=== PATIENT | female | born 1965 | race African-American/Black ===

== ENCOUNTER 2016-09-14 10:44 | Inpatient (IN) | payer OTHER ==
[2016-09-14 12:22] VITALS: BMI 34.0
--- NOTE | 2016-09-14 13:17 | HP ---
CIWA Score - CIWA Score Nausea/Vomitin-No Nausea/No Vomiting Muscle Tremors: 4-Moderate,w/Arms Extend Anxiety: 3 Agitation: 4-Moderately Restless Paroxysmal Sweats: 3 Orientation: 0-Oriented Tacttile Disturbances: 0-None Auditory Disturbances: 0-None Visual Disturbances: 0-None Headache: 0-None Present CIWA-Ar Total Score: 14 Admission ROS BHS - HPI Chief Complaint: I NEED TO STOP DRINKING. Allergies/Adverse Reactions: Allergies Allergy/AdvReac Type Severity Reaction Status Date / Time No Known Allergies Allergy Verified 09/14/16 12:44 History of Present Illness: pt is a 51yr old female with a history of alcohol and crack/cocaine dependence seeking detox for treatment. Exam Limitations: No Limitations - Ebola screening Have you traveled outside of the country in the last 21 days: No Have you had contact with anyone from an Ebola affected area: No Have you been sick,other than usual withdrawal symptoms: No Do you have a fever: No - Review of Systems Constitutional: Chills, Loss of Appetite, Changes in sleep EENT: reports: Dental Problems (missing teeth upper and lower abscess inside right side of cheek.) Respiratory: reports: Cough GI: reports: Constipated, Poor Fluid Intake, Indigestion : reports: No Symptoms Reported Musculoskeletal: reports: No Symptoms Reported Integumentary: reports: Flushing, Sweating Neuro: reports: Seizure, Tingling Endocrine: reports: Excessive Sweating, Flushing, Intolerance to Cold, Intolerance to Heat Hematology: reports: No Symptoms Reported Psychiatric: reports: Judgement Intact, Mood/Affect Appropiate, Orientated x3, Agitated, Anxious Other Systems: Reviewed and Negative Patient History - Patient Medical History Hx Anemia: No Hx Asthma: No Hx Chronic Obstructive Pulmonary Disease (COPD): No Hx Cancer: No Hx Cardiac Disorders: No Hx Congestive Heart Failure: No Hx Hypertension: No Hx Hypercholesterolemia: No Hx Pacemaker: No HX Cerebrovascular Accident: No Hx Seizures: No Hx Diabetes: No Hx Gastrointestinal Disorders: No Hx Liver Disease: No Hx Genitourinary Disorders: No Hx Sexually Transmitted Disorders: No Hx Renal Disease (ESRD): No Hx Thyroid Disease: No Hx Human Immunodeficiency Virus (HIV): Yes (2000 not taking any meds. ) Hx Hepatitis C: No (negative) Hx Depression: Yes Hx Suicide Attempt: No (denies) Hx Bipolar Disorder: No Hx Schizophrenia: No - Patient Surgical History Past Surgical History: Yes Hx Section: Yes (x 1) Other Surgical History: Biopsy of lymph nodes in neck. 2000 and 2002 - PPD History Previous Implant?: Yes Documented Results: Negative w/o proof Implanted On Prior [facility] Admission?: No PPD to be Administered?: Yes - Reproductive History Patient is a Female of Child Bearing Age (11 -55 yrs old): No Last Menstrual Period: 07/13/16 Patient : No - Smoking Cessation Smoking history: Current every day smoker Have you smoked in the past 12 months: Yes Aproximately how many cigarettes per day: 10 Hx Chewing Tobacco Use: No Initiated information on smoking cessation: Yes 'Breaking Loose' booklet given: 09/14/16 - Substance & Tx. History Hx Alcohol Use: Yes Hx Substance Use: Yes Substance Use Type: Alcohol, Cocaine Hx Substance Use Treatment: Yes - Substances Abused Alcohol Route: Oral Frequency: Daily Amount used: 4 beers/ 1 pint cognac Age of first use: 13 Date of Last Use: 09/14/16 Crack Route: Smoking Frequency: 3-6 times per week Amount used: $100 and up Age of first use: 15 Date of Last Use: 09/14/16 Family Disease History - Family Disease History Family History: Denies Admission Physical Exam S - Vital Signs Vital Signs: Vital Signs - 24 hr 09/14/16 11:53 Temperature 98.9 F Pulse Rate 116 H Respiratory 20 Rate Blood Pressure 98/59 - Physical General Appearance: Yes: Appropriately Dressed, Moderate Distress, Obese, Tremorous, Irritable, Sweating, Anxious HEENTM: Yes: Normal Voice, Other (abscess to inside of right cheek.) Respiratory: Yes: Lungs Clear, Normal Breath Sounds, No Respiratory Distress Neck: Yes: No masses,lesions,Nodules Breast: Yes: Within Normal Limits Cardiology: Yes: Regular Rhythm, Regular Rate, S1, S2, Tachycardia Genitourinary: Yes: Within Normal Limits Back: Yes: Normal Inspection Musculoskeletal: Yes: full range of Motion Extremities: Yes: Normal Inspection, Tremors Neurological: Yes: Fully Oriented, Alert, Normal Response Integumentary: Yes: Normal Color, Diaphoresis Lymphatic: Yes: Within Normal Limits - Diagnostic (1) Alcohol dependence with uncomplicated withdrawal Current Visit: Yes Status: Chronic (2) Crack cocaine use Current Visit: Yes Status: Chronic (3) Nicotine dependence Current Visit: Yes Status: Chronic Qualifiers: Nicotine product type: cigarettes Substance use status: uncomplicated Qualified Code(s): F17.210 - Nicotine dependence, cigarettes, uncomplicated (4) Abscess of maxilla Current Visit: Yes Status: Acute (5) Obese Current Visit: Yes Status: Chronic Qualifiers: Obesity type: due to excess calories Obesity severity: morbid Qualified Code(s): E66.01 - Morbid (severe) obesity due to excess calories (6) Dry cough Current Visit: Yes Status: Chronic Cleared for Admission S - Detox or Rehab [facility] Level of Care: Medically Managed Detox Regimen/Protocol: Librium [facility] Breath Alcohol Content Breath Alcohol Content: 0 Urine Pregancy Test - Result Urine Test Results: Negative- NO Line Present Urine Drug Screen - Results Drug Screen Negative: No Urine Drug Screen Results: OPI-Opiates
[2016-09-14] MEDS ORDERED: P-EPHED 60MG/TRIPROLIDI 2.5MG TABLET PO PRN (13:34)
[2016-09-14] MEDS ORDERED: LOPERAMIDE HCL 2 MG CAPSULE PO PRN (13:34)
[2016-09-14] MEDS ORDERED: MAGNESIUM CITRATE 300 ML BOTTLE PO PRN (13:34)
[2016-09-14] MEDS ORDERED: MENTHOL/PHENOL 1 EACH UD MM PRN (13:34)
[2016-09-14] MEDS ORDERED: NICOTINE POLACRILEX 4 MG GUM BUC PRN (13:34)
[2016-09-14] MEDS ORDERED: hydrOXYzine PAMOATE 50 MG CAPSULE (FP) PO PRN (13:34)
[2016-09-14] MEDS ORDERED: ACETAMINOPHEN 325 MG TABLET (FP) PO PRN (13:34)
[2016-09-14] MEDS ORDERED: guaiFENesin/D-METHORPHAN HB 10 ML UNIT-DOSE CUPS PO PRN (13:34)
[2016-09-14] MEDS ORDERED: chlordiazePOXIDE HCL 25 MG CAPSULE PO PRN (13:34)
[2016-09-14] MEDS ORDERED: MAGNESIUM HYDROX 2400MG/30ML ORAL SUSPENSION 30 ML CUP PO PRN (13:34)
[2016-09-14] MEDS ORDERED: MAG HYDROX/AL HYDROX/SIMETH 30 ML UNIT-DOSE CUP PO PRN (13:34)
[2016-09-14] MEDS ORDERED: chlordiazePOXIDE HCL 25 MG CAPSULE PO ONE (14:29)
--- NOTE | 2016-09-14 15:59 | CONSULT ---
[facility] Psychiatric Consult - Data Date of interview: 09/14/16 Admission source: [facility] Identifying data: Readmision to [facility] for this 51 y/o AA female seeking detox treatment for alcohol and cocaine (crack) dependence.Patient is single,a mother of three,domiciled,unemployed and supported on SSI benefits. Substance Abuse History: - Smoking Cessation. Smoking history: Current every day smoker. Have you smoked in the past 12 months: Yes. Aproximately how many cigarettes per day: 10. Hx Chewing Tobacco Use: No. Initiated information on smoking cessation: Yes. 'Breaking Loose' booklet given: 09/14/16. - Substance & Tx. History. Hx Alcohol Use: Yes. Hx Substance Use: Yes. Substance Use Type : Alcohol, Cocaine. Hx Substance Use Treatment: Yes. - Substances Abused. Alcohol. Route: Oral. Frequency: Daily. Amount used: 4 beers/ 1 pint cognac. Age of first use: 13. Date of Last Use: 09/14/16. Crack. Route: Smoking. Frequency: 3-6 times per week. Amount used: $100 and up. Age of first use: 15. Date of Last Use: 09/14/16. Confirmed by patient. Medical History: HIV infection (non-compliant with ART agents) and a past history of one section. Psychiatric History: History of prior [facility].Diagnosed with MDD.Prescribed celexa (dose and last intake : unknown).Ms De La Rosa reports that she gets her OPD follow up care at [facility] clinic.She,however,mentions that she is non- adherent to her OPD treatment schedule/medications.Patient denies history of suicide attempts. Physical/Sexual Abuse/Trauma History: Patient denies. Additional Comment: Urine Drug Screen Results: OPI-Opiates.Noted. Mental Status Exam - Mental Status Exam Alert and Oriented to: Time, Place, Person Cognitive Function: Good Patient Appearance: Well Groomed (obese) Mood: Anxious, Apprehensive, Hopeful Affect: Mood Congruent Patient Behavior: Fatigued, Appropriate, Cooperative Speech Pattern: Clear, Appropriate Voice Loudness: Normal Thought Process: Goal Oriented Thought Disorder: Not Present Hallucinations: Denies Suicidal Ideation: Denies Homicidal Ideation: Denies Insight/Judgement: Poor Sleep: Poorly, Difficulty falling asleep Appetite: Good Muscle strength/Tone: Normal Gait/Station: Normal Psychiatric Findings - Problem List ([place] 1, 2,3) (1) Alcohol dependence with uncomplicated withdrawal Current Visit: Yes Status: Acute (2) Crack cocaine use Current Visit: Yes Status: Acute (3) Nicotine dependence Current Visit: Yes Status: Acute Qualifiers: Nicotine product type: cigarettes Substance use status: uncomplicated Qualified Code(s): F17.210 - Nicotine dependence, cigarettes, uncomplicated (4) Substance induced mood disorder Current Visit: Yes Status: Acute (5) MDD (major depressive disorder) Current Visit: Yes Status: Acute Comment: History reported by the patient. (6) Abscess of maxilla Current Visit: Yes Status: Acute (7) Obese Current Visit: Yes Status: Chronic Qualifiers: Obesity type: due to excess calories Obesity severity: morbid Qualified Code(s): E66.01 - Morbid (severe) obesity due to excess calories (8) Insomnia Current Visit: Yes Status: Acute - Initial Treatment Plan Initial Treatment Plan: Psychoeducation.Detoxification.Patient declines offer for hypnotic medications at this time." I will let you know in a couple of days. " Observation.
[2016-09-14] MEDS: chlordiazePOXIDE HCL 25 MG CAPSULE PO SCH ×2 (17:52→22:36)
[2016-09-14 20:33] LABS: URINE APPEARANCE CLOUDY; URINE BILIRUBIN NEGATIVE (NEGATIVE); URINE BLOOD NEGATIVE (NEGATIVE); URINE COLOR YELLOW; URINE GLUCOSE (UA) NEGATIVE (NEGATIVE); URINE KETONE NEGATIVE (NEGATIVE); URINE NITRITE NEGATIVE (NEGATIVE); URINE UROBILINOGEN 4.0 E.U/dl E.U./dl (0.2-1.0)
[2016-09-14 20:56] LABS: URINE LEUK ESTERASE 3+ (NEGATIVE); URINE PROTEIN 1+ (NEGATIVE)
[2016-09-14 21:02] LABS: URINE MUCUS FEW; URINE RBC 5 /hpf (0-3); URINE WBC 24 /hpf (3-5)
[2016-09-14] MEDS: THIAMINE HCL 100 MG TABLET (FP) PO SCH (22:36)
[2016-09-15] MEDS: chlordiazePOXIDE HCL 25 MG CAPSULE PO SCH ×4 (06:29→22:49)
[2016-09-15 09:55] LABS: MCH 28.4 pg (25.7-33.7); MCHC 33.4 g/dl (32.0-36.0); MEAN PLT VOLUME 9.9 fl (7.5-11.1); PLATELET COUNT 112 K/MM3 (134-434); RDW 16.9 % (11.6-15.6); WHITE BLOOD COUNT 4.3 K/mm3 (4.0-10.0)
[2016-09-15 10:26] LABS: ALBUMIN 2.9 g/dl (3.4-5.0); BILIRUBIN,TOTAL 0.2 mg/dL (0.2-1.0); TOT PROT 7.1 g/dl (6.4-8.2)
--- NOTE | 2016-09-15 10:49 | PN ---
S CIWA - CIWA Score Nausea/Vomitin-No Nausea/No Vomiting Muscle Tremors: 4-Moderate,w/Arms Extend Anxiety: 3 Agitation: 4-Moderately Restless Paroxysmal Sweats: 3 Orientation: 0-Oriented Tacttile Disturbances: 0-None Auditory Disturbances: 0-None Visual Disturbances: 0-None Headache: 0-None Present CIWA-Ar Total Score: 14 BHS Progress Note (SOAP) Subjective: agitation anxiety sweats interrupted sleep tired Objective: 09/15/16 10:48 Vital Signs Temperature 97.8 F 09/15/16 06:30 Pulse Rate 83 09/15/16 06:30 Respiratory Rate 18 09/15/16 06:30 Blood Pressure 134/98 09/15/16 06:30 O2 Sat by Pulse Oximetry (%) Laboratory Tests 09/14/16 09/15/16 09/15/16 15:00 07:00 07:00 WBC 4.3 RBC 4.27 Hgb 12.1 Hct 36.3 MCV 85.0 MCHC 33.4 RDW 16.9 H D Plt Count 112 L MPV 9.9 D Sodium 141 Potassium 3.6 Chloride 104 Carbon Dioxide 25 Anion Gap 12 BUN 10 D Creatinine 1.0 Creat Clearance w eGFR 58.93 Random Glucose 149 H Calcium 8.0 L Total Bilirubin 0.2 D AST 26 D ALT 28 Alkaline Phosphatase 78 D Total Protein 7.1 Albumin 2.9 L Urine Color Yellow Urine Appearance Cloudy Urine pH 6.0 Ur Specific [place] 1.026 Urine Protein 1+ H Urine Glucose (UA) Negative Urine Ketones Negative Urine Blood Negative Urine Nitrite Negative Urine Bilirubin Negative Urine Urobilinogen 4.0 e.u/dl H Ur Leukocyte Esterase 3+ H D Urine RBC 5 Urine WBC 24 Ur Epithelial Cells Many Urine Mucus Few awake/alert ambulating no acute distress Assessment: 09/15/16 10:49 withdrawal sx Plan: continue detox increase fluids
[2016-09-15] MEDS: PRENATAL VITAMINS W/ FOLIC ACID TABLET (FP) PO SCH (11:27)
[2016-09-15] MEDS: NICOTINE 21 MG/24 HOURS TOPICAL PATCH TD SCH (11:28)
--- NOTE | 2016-09-15 16:29 | EKG ---
Test Reason : Blood Pressure : / mmHG Vent. Rate : 098 BPM Atrial Rate : 098 BPM P-R Int : 134 ms QRS Dur : 080 ms QT Int : 370 ms P-R-T Axes : 060 034 043 degrees QTc Int : 472 ms NORMAL SINUS RHYTHM NORMAL ECG NO PREVIOUS ECGS AVAILABLE Confirmed by ALTON STOKES MD ([id number]) on 09/15/2016 4:28:55 PM Referred By: Luis Sanchez Confirmed By:ALTON STOKES MD
[2016-09-15] MEDS: AMOX TR/POT CLAV 875MG/125MG TABLETS (FP) PO SCH (20:40)
[2016-09-15] MEDS: THIAMINE HCL 100 MG TABLET (FP) PO SCH (22:49)
[2016-09-16] MEDS: IBUPROFEN 400 MG TABLET (FP) PO PRN ×2 (05:42→17:28)
[2016-09-16] MEDS: chlordiazePOXIDE HCL 25 MG CAPSULE PO SCH ×2 (05:43→10:52)
[2016-09-16] MEDS: AMOX TR/POT CLAV 875MG/125MG TABLETS (FP) PO SCH ×2 (07:40→17:26)
[2016-09-16] MEDS: NICOTINE 21 MG/24 HOURS TOPICAL PATCH TD SCH (10:51)
[2016-09-16] MEDS: PRENATAL VITAMINS W/ FOLIC ACID TABLET (FP) PO SCH (10:52)
[2016-09-16] MEDS: LIDOCAINE VISCOUS 2% ORAL/TOP 20 ML UNIT-DOSE CUP MM PRN (10:53)
--- NOTE | 2016-09-16 11:32 | PN ---
[facility] CIWA - CIWA Score Nausea/Vomitin-No Nausea/No Vomiting Muscle Tremors: 3 Anxiety: 3 Agitation: 4-Moderately Restless Paroxysmal Sweats: 3 Orientation: 0-Oriented Tacttile Disturbances: 0-None Auditory Disturbances: 0-None Visual Disturbances: 0-None Headache: 0-None Present CIWA-Ar Total Score: 13 S Progress Note (SOAP) Subjective: sweats shakes agitation sleepy Objective: 09/16/16 11:31 Vital Signs Temperature 98.6 F 09/16/16 10:16 Pulse Rate 82 09/16/16 10:16 Respiratory Rate 18 09/16/16 10:16 Blood Pressure 118/74 09/16/16 10:16 O2 Sat by Pulse Oximetry (%) Laboratory Tests 09/14/16 09/15/16 09/15/16 15:00 07:00 07:00 WBC 4.3 RBC 4.27 Hgb 12.1 Hct 36.3 MCV 85.0 MCHC 33.4 RDW 16.9 H D Plt Count 112 L MPV 9.9 D Sodium 141 Potassium 3.6 Chloride 104 Carbon Dioxide 25 Anion Gap 12 BUN 10 D Creatinine 1.0 Creat Clearance w eGFR 58.93 Random Glucose 149 H Calcium 8.0 L Total Bilirubin 0.2 D AST 26 D ALT 28 Alkaline Phosphatase 78 D Total Protein 7.1 Albumin 2.9 L Urine Color Yellow Urine Appearance Cloudy Urine pH 6.0 Ur Specific [place] 1.026 Urine Protein 1+ H Urine Glucose (UA) Negative Urine Ketones Negative Urine Blood Negative Urine Nitrite Negative Urine Bilirubin Negative Urine Urobilinogen 4.0 e.u/dl H Ur Leukocyte Esterase 3+ H D Urine RBC 5 Urine WBC 24 Ur Epithelial Cells Many Urine Mucus Few RPR Titer 09/15/16 07:00 WBC RBC Hgb Hct MCV MCHC RDW Plt Count MPV Sodium Potassium Chloride Carbon Dioxide Anion Gap BUN Creatinine Creat Clearance w eGFR Random Glucose Calcium Total Bilirubin AST ALT Alkaline Phosphatase Total Protein Albumin Urine Color Urine Appearance Urine pH Ur Specific [place] Urine Protein Urine Glucose (UA) Urine Ketones Urine Blood Urine Nitrite Urine Bilirubin Urine Urobilinogen Ur Leukocyte Esterase Urine RBC Urine WBC Ur Epithelial Cells Urine Mucus RPR Titer Nonreactive awake/alert ambulating no acute distress Assessment: 09/16/16 11:32 withdrawal sx Plan: continue detox increase fluids
[2016-09-16] MEDS: chlordiazePOXIDE 5 MG CAPSULE PO SCH ×2 (17:26→22:55)
[2016-09-16] MEDS: diphenhydrAMINE HCL 50 MG CAPSULE PO PRN (22:55)
[2016-09-16] MEDS: THIAMINE HCL 100 MG TABLET (FP) PO SCH (22:55)
[2016-09-17] MEDS: chlordiazePOXIDE 5 MG CAPSULE PO SCH ×2 (06:19→11:36)
[2016-09-17] MEDS: IBUPROFEN 400 MG TABLET (FP) PO PRN (06:26)
[2016-09-17] MEDS: AMOX TR/POT CLAV 875MG/125MG TABLETS (FP) PO SCH ×2 (08:03→17:17)
[2016-09-17] MEDS: NICOTINE 21 MG/24 HOURS TOPICAL PATCH TD SCH (11:36)
[2016-09-17] MEDS: PRENATAL VITAMINS W/ FOLIC ACID TABLET (FP) PO SCH (11:36)
[2016-09-17] MEDS: chlordiazePOXIDE HCL 10 MG CAPSULE PO SCH ×2 (17:17→22:45)
--- NOTE | 2016-09-17 17:17 | PN ---
S Progress Note (SOAP) Subjective: Constipation, Chils, Body aches, Sweating. Objective: PT. A & O X 3, OBSERVED AMBULATING ON UNIT. 09/17/16 17:16 Vital Signs Temperature 97.5 F L 09/17/16 14:36 Pulse Rate 79 09/17/16 14:36 Respiratory Rate 19 09/17/16 14:36 Blood Pressure 127/50 09/17/16 14:36 O2 Sat by Pulse Oximetry (%) Laboratory Last Values WBC 4.3 K/mm3 (4.0-10.0) 09/15/16 07:00 RBC 4.27 M/mm3 (3.60-5.2) 09/15/16 07:00 Hgb 12.1 GM/dL (10.7-15.3) 09/15/16 07:00 Hct 36.3 % (32.4-45.2) 09/15/16 07:00 MCV 85.0 fl (80-96) 09/15/16 07:00 MCHC 33.4 g/dl (32.0-36.0) 09/15/16 07:00 RDW 16.9 % (11.6-15.6) H D 09/15/16 07:00 Plt Count 112 K/MM3 (134-434) L 09/15/16 07:00 MPV 9.9 fl (7.5-11.1) D 09/15/16 07:00 Sodium 141 mmol/L (136-145) 09/15/16 07:00 Potassium 3.6 mmol/L (3.5-5.1) 09/15/16 07:00 Chloride 104 mmol/L (98-107) 09/15/16 07:00 Carbon Dioxide 25 mmol/L (21-32) 09/15/16 07:00 Anion Gap 12 (8-16) 09/15/16 07:00 BUN 10 mg/dL (7-18) D 09/15/16 07:00 Creatinine 1.0 mg/dL (0.55-1.02) 09/15/16 07:00 Creat Clearance w eGFR 58.93 (>60) 09/15/16 07:00 Random Glucose 149 mg/dL (74-106) H 09/15/16 07:00 Calcium 8.0 mg/dL (8.5-10.1) L 09/15/16 07:00 Total Bilirubin 0.2 mg/dL (0.2-1.0) D 09/15/16 07:00 AST 26 U/L (15-37) D 09/15/16 07:00 ALT 28 U/L (12-78) 09/15/16 07:00 Alkaline Phosphatase 78 U/L (45-117) D 09/15/16 07:00 Total Protein 7.1 g/dl (6.4-8.2) 09/15/16 07:00 Albumin 2.9 g/dl (3.4-5.0) L 09/15/16 07:00 Urine Color Yellow 09/14/16 15:00 Urine Appearance Cloudy 09/14/16 15:00 Urine pH 6.0 (5.0-8.0) 09/14/16 15:00 Ur Specific [place] 1.026 (1.001-1.035) 09/14/16 15:00 Urine Protein 1+ (NEGATIVE) H 09/14/16 15:00 Urine Glucose (UA) Negative (NEGATIVE) 09/14/16 15:00 Urine Ketones Negative (NEGATIVE) 09/14/16 15:00 Urine Blood Negative (NEGATIVE) 09/14/16 15:00 Urine Nitrite Negative (NEGATIVE) 09/14/16 15:00 Urine Bilirubin Negative (NEGATIVE) 09/14/16 15:00 Urine Urobilinogen 4.0 e.u/dl E.U./dl (0.2-1.0) H 09/14/16 15:00 Ur Leukocyte Esterase 3+ (NEGATIVE) H D 09/14/16 15:00 Urine RBC 5 /hpf (0-3) 09/14/16 15:00 Urine WBC 24 /hpf (3-5) 09/14/16 15:00 Ur Epithelial Cells Many /hpf (FEW) 09/14/16 15:00 Urine Mucus Few 09/14/16 15:00 RPR Titer Nonreactive (NONREACTIVE) 09/15/16 07:00 LABS NOTED. Assessment: 09/17/16 17:17 WITHDRAWAL SYMPTOMS. Plan: CONTINUE DETOX. ADVISED PATIENT TO FOLLOW-UP WITH [facility] / REHAB MEDICAL PROVIDER AFTER DISCHARGE FROM DETOX FOR GENERAL MEDICAL ASSESSMENT AND FOR ABNORMAL ADMISSION LAB VALUES.
[2016-09-17] MEDS: LIDOCAINE VISCOUS 2% ORAL/TOP 20 ML UNIT-DOSE CUP MM PRN (17:19)
[2016-09-17] MEDS: diphenhydrAMINE HCL 50 MG CAPSULE PO PRN (22:45)
[2016-09-17] MEDS: THIAMINE HCL 100 MG TABLET (FP) PO SCH (22:45)
[2016-09-18] MEDS: chlordiazePOXIDE HCL 10 MG CAPSULE PO SCH (05:58)
[2016-09-18] MEDS: AMOX TR/POT CLAV 875MG/125MG TABLETS (FP) PO SCH (08:03)
[2016-09-18 11:55] VITALS: BP 111/70; PULSE 94; TEMP 98.1
--- NOTE | 2016-09-18 13:10 | DS ---
[facility] Detox Discharge Summary Admission Date: 09/14/16 Discharge Date: 09/18/16 - History Present History: Alcohol Dependence, Cocaine Dependence Pertinent Past History: HIV - Physical Exam Results Vital Signs: Vital Signs Temperature 98.1 F 09/18/16 10:00 Pulse Rate 94 H 09/18/16 10:00 Respiratory Rate 18 09/18/16 10:00 Blood Pressure 111/70 09/18/16 10:00 O2 Sat by Pulse Oximetry (%) Pertinent Admission Physical Exam Findings: Withdrawal symptoms Laboratory Tests 09/14/16 09/15/16 09/15/16 15:00 07:00 07:00 WBC 4.3 RBC 4.27 Hgb 12.1 Hct 36.3 MCV 85.0 MCHC 33.4 RDW 16.9 H D Plt Count 112 L MPV 9.9 D Sodium 141 Potassium 3.6 Chloride 104 Carbon Dioxide 25 Anion Gap 12 BUN 10 D Creatinine 1.0 Creat Clearance w eGFR 58.93 Random Glucose 149 H Calcium 8.0 L Total Bilirubin 0.2 D AST 26 D ALT 28 Alkaline Phosphatase 78 D Total Protein 7.1 Albumin 2.9 L Urine Color Yellow Urine Appearance Cloudy Urine pH 6.0 Ur Specific [place] 1.026 Urine Protein 1+ H Urine Glucose (UA) Negative Urine Ketones Negative Urine Blood Negative Urine Nitrite Negative Urine Bilirubin Negative Urine Urobilinogen 4.0 e.u/dl H Ur Leukocyte Esterase 3+ H D Urine RBC 5 Urine WBC 24 Ur Epithelial Cells Many Urine Mucus Few RPR Titer 09/15/16 07:00 WBC RBC Hgb Hct MCV MCHC RDW Plt Count MPV Sodium Potassium Chloride Carbon Dioxide Anion Gap BUN Creatinine Creat Clearance w eGFR Random Glucose Calcium Total Bilirubin AST ALT Alkaline Phosphatase Total Protein Albumin Urine Color Urine Appearance Urine pH Ur Specific [place] Urine Protein Urine Glucose (UA) Urine Ketones Urine Blood Urine Nitrite Urine Bilirubin Urine Urobilinogen Ur Leukocyte Esterase Urine RBC Urine WBC Ur Epithelial Cells Urine Mucus RPR Titer Nonreactive Labs noted - Treatment Hospital Course: Detox Protocol Followed, Detoxed Safely, Responded well, Discharged Condition Good - Medication Discharge Medications: Ambulatory Orders NK [No Known Home Medication] 09/14/16 - Diagnosis (1) Alcohol dependence with uncomplicated withdrawal Status: Acute (2) Crack cocaine use Status: Chronic (3) MDD (major depressive disorder) Status: Chronic (4) Nicotine dependence Status: Chronic Qualifiers: Nicotine product type: cigarettes Substance use status: uncomplicated Qualified Code(s): F17.210 - Nicotine dependence, cigarettes, uncomplicated (5) HIV (human immunodeficiency virus infection) Status: Chronic (6) Abscess of maxilla Status: Acute - AMA Did Patient Leave Against Medical Advice: No
== END 2016-09-18 10:17 | disposition home or self-care (01) | DRG 774 ==
LOC: YASAS 10:44 → Y6N 13:48
PROVIDERS: ADMIT Internal Medicine Addiction Medicine; ATTEND Internal Medicine Addiction Medicine
PROC: HZ2ZZZZ Detoxification Services for Substance Abuse Treatment (ICD-10-PCS; principal; 2016-09-18)
DX: F10.230 Alcohol dependence with withdrawal, uncomplicated (principal); F17.210 Nicotine dependence, cigarettes, uncomplicated; F14.10 Cocaine abuse, uncomplicated; F33.9 Major depressive disorder, recurrent, unspecified; F19.24 Other psychoactive substance dependence with psychoactive substance-induced mood disorder; G47.00 Insomnia, unspecified; Z21 Asymptomatic human immunodeficiency virus [HIV] infection status; M27.2 Inflammatory conditions of jaws; E66.09 Other obesity due to excess calories; Z68.34 Body mass index [BMI] 34.0-34.9, adult
CPT/HCPCS: 36415; 80053; 81003; 81015; 85027; 86593; 93005; 93010

== ENCOUNTER 2022-04-12 17:54 | Inpatient (IN) | payer OTHER ==
[2022-04-12] MEDS ORDERED: MAGNESIUM HYDROX 2400MG/30ML ORAL SUSPENSION 30 ML CUP PO PRN (19:26)
[2022-04-12] MEDS ORDERED: guaiFENesin 200 MG/10 ML 10 ML UNIT-DOSE CUPS PO PRN (19:26)
[2022-04-12] MEDS ORDERED: MAG HYDROX/AL HYDROX/SIMETH 30 ML UNIT-DOSE CUP PO PRN (19:26)
[2022-04-12] MEDS ORDERED: IBUPROFEN 400 MG TABLET (FP) PO PRN (19:26)
[2022-04-12] MEDS ORDERED: P-EPHED 60MG/TRIPROLIDI 2.5MG TABLET PO PRN (19:26)
[2022-04-12] MEDS ORDERED: MAGNESIUM CITRATE 300 ML BOTTLE PO PRN (19:26)
[2022-04-12] MEDS ORDERED: LOPERAMIDE HCL 2 MG CAPSULE PO PRN (19:26)
[2022-04-12] MEDS ORDERED: ACETAMINOPHEN 325 MG TABLET (FP) PO PRN (19:26)
[2022-04-12 19:54] VITALS: BMI 32.9
[2022-04-12] MEDS ORDERED: TUBERCULIN PPD 5 TU/0.1ML VIAL ID ONE (22:06)
[2022-04-12] MEDS: THIAMINE HCL 100 MG TABLET (FP) PO SCH (22:09)
[2022-04-12] MEDS: MELATONIN 5 MG TABLETS PO SCH (22:09)
[2022-04-13] MEDS: PRENATAL VITAMINS W/ FOLIC ACID TABLET (FP) PO SCH (09:55)
[2022-04-13 10:33] LABS: HEMATOCRIT 38.9 % (32.4-45.2); HEMOGLOBIN 12.9 GM/dL (10.7-15.3); MCH 29.4 pg (25.7-33.7); MCHC 33.2 g/dl (32.0-36.0); MEAN CELL VOLUME 88.6 fl (80-96); MEAN PLT VOLUME 9.9 fl (7.5-11.1); PLATELET COUNT 153 10^3/uL (134-434); RBC 4.39 M/mm3 (3.60-5.2); RDW 15.1 % (11.6-15.6); WHITE BLOOD COUNT 4.3 K/mm3 (4.0-10.0)
[2022-04-13 10:37] LABS: CALCIUM 8.6 mg/dL (8.5-10.1)
[2022-04-13 10:38] LABS: ALBUMIN 2.9 g/dl (3.4-5.0)
[2022-04-13 10:41] LABS: CREATININE 0.9 mg/dL (0.55-1.3)
[2022-04-13 10:43] LABS: BILIRUBIN,TOTAL 0.2 mg/dL (0.2-1); TOT PROT 7.1 g/dl (6.4-8.2)
[2022-04-13 11:59] LABS: SYPHILIS W/ RPR CONF NON-REACTIVE (NONREACTIVE)
[2022-04-13] MEDS: traZODone HCL 50 MG TABLET (FP) PO SCH (21:36)
[2022-04-13] MEDS: THIAMINE HCL 100 MG TABLET (FP) PO SCH (21:36)
[2022-04-13] MEDS: risperiDONE 1 MG TABLET PO SCH (21:36)
[2022-04-13] MEDS: MELATONIN 5 MG TABLETS PO SCH (21:36)
[2022-04-13] MEDS ORDERED: risperiDONE 1 MG TABLET PO SCH (22:00)
[2022-04-14] MEDS: PRENATAL VITAMINS W/ FOLIC ACID TABLET (FP) PO SCH (10:36)
[2022-04-14] MEDS: risperiDONE 1 MG TABLET PO SCH ×2 (10:36→21:47)
[2022-04-14] MEDS ORDERED: ALBUTEROL SO4 HFA INHALER IH PRN (14:27)
[2022-04-14 15:29] LABS: EPI CELLS 7 /uL (0-25.1); HYALINE CASTS 3 /uL (0-3.1); PH,URINE 6.5 (5.0-8.0); URINE APPEARANCE CLOUDY; URINE BACTERIA 460 /uL (0-1359); URINE BILIRUBIN NEGATIVE (NEGATIVE); URINE COLOR YELLOW; URINE GLUCOSE (UA) NEGATIVE (NEGATIVE); URINE KETONE NEGATIVE (NEGATIVE); URINE LEUK ESTERASE 3+ (NEGATIVE); URINE NITRITE NEGATIVE (NEGATIVE); URINE PROTEIN TRACE (NEGATIVE); URINE RBC 14 /uL (0-23.9); URINE UROBILINOGEN 0.2 mg/dL (0.2-1.0); URINE WBC 642 /uL (0-25.8)
[2022-04-14] MEDS ORDERED: INSULIN (NOVOLOG) ASPART 100 UNITS/ML 10ML VIAL ONE (16:47)
[2022-04-14] MEDS: INSULIN SLIDING SCALE (NOVOLOG) 1 VIAL SQ SCH (16:47)
[2022-04-14] MEDS: traZODone HCL 50 MG TABLET (FP) PO SCH (21:46)
[2022-04-14] MEDS: THIAMINE HCL 100 MG TABLET (FP) PO SCH (21:46)
[2022-04-14] MEDS: MELATONIN 5 MG TABLETS PO SCH (21:47)
[2022-04-14] MEDS: hydrOXYzine PAMOATE 25 MG CAPSULE (FP) PO PRN (21:47)
[2022-04-14] MEDS: INSULIN (LEVEMIR) 100 UNITS/ML UNITS SQ SCH (21:57)
[2022-04-14] MEDS: DOCUSATE SODIUM 100 MG CAPSULE (FP) PO SCH (22:01)
[2022-04-15] MEDS: INSULIN SLIDING SCALE (NOVOLOG) 1 VIAL SQ SCH ×2 (07:37→16:53)
[2022-04-15] MEDS: PRENATAL VITAMINS W/ FOLIC ACID TABLET (FP) PO SCH (10:30)
[2022-04-15] MEDS: BICTEGRAV/EMTRICIT/TENOFOV (BIKTARVY) 50-200-25 MG TABLET PO SCH (10:31)
[2022-04-15] MEDS: DOCUSATE SODIUM 100 MG CAPSULE (FP) PO SCH ×2 (10:31→21:37)
[2022-04-15] MEDS: risperiDONE 1 MG TABLET PO SCH ×2 (10:31→21:37)
[2022-04-15] MEDS ORDERED: INSULIN (NOVOLOG) ASPART 100 UNITS/ML 10ML VIAL ONE (16:53)
[2022-04-15] MEDS: INSULIN (LEVEMIR) 100 UNITS/ML UNITS SQ SCH (21:37)
[2022-04-15] MEDS: THIAMINE HCL 100 MG TABLET (FP) PO SCH (21:37)
[2022-04-15] MEDS: MELATONIN 5 MG TABLETS PO SCH (21:37)
[2022-04-15] MEDS: traZODone HCL 50 MG TABLET (FP) PO SCH (21:37)
[2022-04-16] MEDS: INSULIN SLIDING SCALE (NOVOLOG) 1 VIAL SQ SCH ×2 (08:42→17:32)
[2022-04-16] MEDS: BICTEGRAV/EMTRICIT/TENOFOV (BIKTARVY) 50-200-25 MG TABLET PO SCH (10:10)
[2022-04-16] MEDS: DOCUSATE SODIUM 100 MG CAPSULE (FP) PO SCH ×2 (10:10→21:47)
[2022-04-16] MEDS: PRENATAL VITAMINS W/ FOLIC ACID TABLET (FP) PO SCH (10:10)
[2022-04-16] MEDS: risperiDONE 1 MG TABLET PO SCH ×2 (10:10→21:47)
[2022-04-16] MEDS: INSULIN (LEVEMIR) 100 UNITS/ML UNITS SQ SCH (21:45)
[2022-04-16] MEDS: MELATONIN 5 MG TABLETS PO SCH (21:47)
[2022-04-16] MEDS: hydrOXYzine PAMOATE 25 MG CAPSULE (FP) PO PRN (21:47)
[2022-04-16] MEDS: traZODone HCL 50 MG TABLET (FP) PO SCH (21:47)
[2022-04-16] MEDS: THIAMINE HCL 100 MG TABLET (FP) PO SCH (21:47)
[2022-04-17] MEDS: INSULIN SLIDING SCALE (NOVOLOG) 1 VIAL SQ SCH ×3 (06:47→17:12)
[2022-04-17] MEDS: BICTEGRAV/EMTRICIT/TENOFOV (BIKTARVY) 50-200-25 MG TABLET PO SCH (07:07)
[2022-04-17] MEDS ORDERED: INSULIN (NOVOLOG) ASPART 100 UNITS/ML 10ML VIAL ONE (07:19)
[2022-04-17] MEDS: PRENATAL VITAMINS W/ FOLIC ACID TABLET (FP) PO SCH (10:06)
[2022-04-17] MEDS: risperiDONE 1 MG TABLET PO SCH ×2 (10:06→21:55)
[2022-04-17] MEDS: DOCUSATE SODIUM 100 MG CAPSULE (FP) PO SCH ×2 (10:06→21:55)
[2022-04-17] MEDS: THIAMINE HCL 100 MG TABLET (FP) PO SCH (21:55)
[2022-04-17] MEDS: traZODone HCL 50 MG TABLET (FP) PO SCH (21:55)
[2022-04-17] MEDS: hydrOXYzine PAMOATE 25 MG CAPSULE (FP) PO PRN (21:55)
[2022-04-17] MEDS: MELATONIN 5 MG TABLETS PO SCH (21:55)
[2022-04-17] MEDS: INSULIN (LEVEMIR) 100 UNITS/ML UNITS SQ SCH (22:55)
[2022-04-18] MEDS ORDERED: INSULIN (NOVOLOG) ASPART 100 UNITS/ML 10ML VIAL ONE (06:37)
[2022-04-18] MEDS: BICTEGRAV/EMTRICIT/TENOFOV (BIKTARVY) 50-200-25 MG TABLET PO SCH (07:01)
[2022-04-18] MEDS: INSULIN SLIDING SCALE (NOVOLOG) 1 VIAL SQ SCH ×2 (07:05→17:19)
[2022-04-18] MEDS: DOCUSATE SODIUM 100 MG CAPSULE (FP) PO SCH ×2 (10:21→21:58)
[2022-04-18] MEDS: PRENATAL VITAMINS W/ FOLIC ACID TABLET (FP) PO SCH (10:21)
[2022-04-18] MEDS: risperiDONE 1 MG TABLET PO SCH ×2 (10:21→21:58)
[2022-04-18] MEDS: traZODone HCL 50 MG TABLET (FP) PO SCH (21:58)
[2022-04-18] MEDS: THIAMINE HCL 100 MG TABLET (FP) PO SCH (21:58)
[2022-04-18] MEDS: MELATONIN 5 MG TABLETS PO SCH (21:58)
[2022-04-18] MEDS: INSULIN (LEVEMIR) 100 UNITS/ML UNITS SQ SCH (22:25)
[2022-04-19] MEDS ORDERED: INSULIN (NOVOLOG) ASPART 100 UNITS/ML 10ML VIAL ONE (06:47)
[2022-04-19] MEDS: INSULIN SLIDING SCALE (NOVOLOG) 1 VIAL SQ SCH ×2 (06:47→16:50)
[2022-04-19] MEDS: BICTEGRAV/EMTRICIT/TENOFOV (BIKTARVY) 50-200-25 MG TABLET PO SCH (07:08)
[2022-04-19] MEDS: DOCUSATE SODIUM 100 MG CAPSULE (FP) PO SCH ×2 (10:34→21:37)
[2022-04-19] MEDS: risperiDONE 1 MG TABLET PO SCH ×2 (10:34→21:37)
[2022-04-19] MEDS: PRENATAL VITAMINS W/ FOLIC ACID TABLET (FP) PO SCH (10:34)
[2022-04-19] MEDS: MELATONIN 5 MG TABLETS PO SCH (21:37)
[2022-04-19] MEDS: THIAMINE HCL 100 MG TABLET (FP) PO SCH (21:38)
[2022-04-19] MEDS: traZODone HCL 50 MG TABLET (FP) PO SCH (21:38)
[2022-04-19] MEDS: INSULIN (LEVEMIR) 100 UNITS/ML UNITS SQ SCH (21:40)
[2022-04-20] MEDS ORDERED: INSULIN (NOVOLOG) ASPART 100 UNITS/ML 10ML VIAL ONE (04:01)
[2022-04-20] MEDS: INSULIN SLIDING SCALE (NOVOLOG) 1 VIAL SQ SCH ×2 (06:51→16:32)
[2022-04-20] MEDS: BICTEGRAV/EMTRICIT/TENOFOV (BIKTARVY) 50-200-25 MG TABLET PO SCH (07:10)
[2022-04-20] MEDS: DOCUSATE SODIUM 100 MG CAPSULE (FP) PO SCH ×2 (10:13→21:29)
[2022-04-20] MEDS: PRENATAL VITAMINS W/ FOLIC ACID TABLET (FP) PO SCH (10:13)
[2022-04-20] MEDS: risperiDONE 1 MG TABLET PO SCH ×2 (10:13→21:29)
[2022-04-20] MEDS: NICOTINE 10 MG CARTRIDGE (INHALER) IH PRN (17:50)
[2022-04-20] MEDS: traZODone HCL 50 MG TABLET (FP) PO SCH (21:29)
[2022-04-20] MEDS: THIAMINE HCL 100 MG TABLET (FP) PO SCH (21:29)
[2022-04-20] MEDS: MELATONIN 5 MG TABLETS PO SCH (21:29)
[2022-04-20] MEDS: INSULIN (LEVEMIR) 100 UNITS/ML UNITS SQ SCH (21:30)
[2022-04-21] MEDS: INSULIN SLIDING SCALE (NOVOLOG) 1 VIAL SQ SCH ×2 (06:20→16:42)
[2022-04-21] MEDS: BICTEGRAV/EMTRICIT/TENOFOV (BIKTARVY) 50-200-25 MG TABLET PO SCH (07:14)
[2022-04-21] MEDS: PRENATAL VITAMINS W/ FOLIC ACID TABLET (FP) PO SCH (10:23)
[2022-04-21] MEDS: risperiDONE 1 MG TABLET PO SCH ×2 (10:24→21:24)
[2022-04-21] MEDS: DOCUSATE SODIUM 100 MG CAPSULE (FP) PO SCH ×2 (10:24→21:24)
[2022-04-21] MEDS: traZODone HCL 50 MG TABLET (FP) PO SCH (21:24)
[2022-04-21] MEDS: MELATONIN 5 MG TABLETS PO SCH (21:24)
[2022-04-21] MEDS: INSULIN (LEVEMIR) 100 UNITS/ML UNITS SQ SCH (21:24)
[2022-04-21] MEDS: THIAMINE HCL 100 MG TABLET (FP) PO SCH (21:24)
[2022-04-22] MEDS: INSULIN SLIDING SCALE (NOVOLOG) 1 VIAL SQ SCH ×2 (06:37→16:59)
[2022-04-22] MEDS: BICTEGRAV/EMTRICIT/TENOFOV (BIKTARVY) 50-200-25 MG TABLET PO SCH (07:22)
[2022-04-22] MEDS: PRENATAL VITAMINS W/ FOLIC ACID TABLET (FP) PO SCH (10:34)
[2022-04-22] MEDS: risperiDONE 1 MG TABLET PO SCH ×2 (10:34→21:42)
[2022-04-22] MEDS: DOCUSATE SODIUM 100 MG CAPSULE (FP) PO SCH ×2 (10:34→21:42)
[2022-04-22] MEDS: THIAMINE HCL 100 MG TABLET (FP) PO SCH (21:42)
[2022-04-22] MEDS: traZODone HCL 50 MG TABLET (FP) PO SCH (21:42)
[2022-04-22] MEDS: INSULIN (LEVEMIR) 100 UNITS/ML UNITS SQ SCH (21:42)
[2022-04-22] MEDS: MELATONIN 5 MG TABLETS PO SCH (21:42)
[2022-04-23] MEDS: BICTEGRAV/EMTRICIT/TENOFOV (BIKTARVY) 50-200-25 MG TABLET PO SCH (07:03)
[2022-04-23] MEDS: INSULIN SLIDING SCALE (NOVOLOG) 1 VIAL SQ SCH ×2 (07:41→17:14)
[2022-04-23] MEDS: DOCUSATE SODIUM 100 MG CAPSULE (FP) PO SCH ×2 (10:25→21:54)
[2022-04-23] MEDS: risperiDONE 1 MG TABLET PO SCH ×2 (10:25→21:55)
[2022-04-23] MEDS: PRENATAL VITAMINS W/ FOLIC ACID TABLET (FP) PO SCH (10:25)
[2022-04-23] MEDS ORDERED: INSULIN (NOVOLOG) ASPART 100 UNITS/ML 10ML VIAL ONE (16:43)
[2022-04-23] MEDS: MELATONIN 5 MG TABLETS PO SCH (21:54)
[2022-04-23] MEDS: traZODone HCL 50 MG TABLET (FP) PO SCH (21:55)
[2022-04-23] MEDS: INSULIN (LEVEMIR) 100 UNITS/ML UNITS SQ SCH (21:55)
[2022-04-23] MEDS: THIAMINE HCL 100 MG TABLET (FP) PO SCH (21:55)
[2022-04-24 06:03] VITALS: RESP 18
[2022-04-24] MEDS: BICTEGRAV/EMTRICIT/TENOFOV (BIKTARVY) 50-200-25 MG TABLET PO SCH (07:09)
[2022-04-24] MEDS: INSULIN SLIDING SCALE (NOVOLOG) 1 VIAL SQ SCH ×2 (07:31→16:43)
[2022-04-24] MEDS: PRENATAL VITAMINS W/ FOLIC ACID TABLET (FP) PO SCH (10:32)
[2022-04-24] MEDS: DOCUSATE SODIUM 100 MG CAPSULE (FP) PO SCH ×2 (10:32→21:50)
[2022-04-24] MEDS: risperiDONE 1 MG TABLET PO SCH ×2 (10:32→21:50)
[2022-04-24] MEDS ORDERED: INSULIN (NOVOLOG) ASPART 100 UNITS/ML 10ML VIAL ONE (16:12)
[2022-04-24] MEDS: MELATONIN 5 MG TABLETS PO SCH (21:49)
[2022-04-24] MEDS: THIAMINE HCL 100 MG TABLET (FP) PO SCH (21:50)
[2022-04-24] MEDS: traZODone HCL 50 MG TABLET (FP) PO SCH (21:50)
[2022-04-24] MEDS: INSULIN (LEVEMIR) 100 UNITS/ML UNITS SQ SCH (21:50)
[2022-04-24] MEDS: NICOTINE 10 MG CARTRIDGE (INHALER) IH PRN (22:07)
[2022-04-25] MEDS ORDERED: INSULIN (NOVOLOG) ASPART 100 UNITS/ML 10ML VIAL ONE (06:17)
[2022-04-25] MEDS: INSULIN SLIDING SCALE (NOVOLOG) 1 VIAL SQ SCH ×2 (06:18→16:54)
[2022-04-25] MEDS: BICTEGRAV/EMTRICIT/TENOFOV (BIKTARVY) 50-200-25 MG TABLET PO SCH (07:17)
[2022-04-25] MEDS: PRENATAL VITAMINS W/ FOLIC ACID TABLET (FP) PO SCH (10:32)
[2022-04-25] MEDS: DOCUSATE SODIUM 100 MG CAPSULE (FP) PO SCH ×2 (10:32→21:08)
[2022-04-25] MEDS: risperiDONE 1 MG TABLET PO SCH ×2 (10:32→21:07)
[2022-04-25] MEDS: THIAMINE HCL 100 MG TABLET (FP) PO SCH (21:07)
[2022-04-25] MEDS: MELATONIN 5 MG TABLETS PO SCH (21:07)
[2022-04-25] MEDS: INSULIN (LEVEMIR) 100 UNITS/ML UNITS SQ SCH (21:08)
[2022-04-25] MEDS: hydrOXYzine PAMOATE 25 MG CAPSULE (FP) PO PRN (21:10)
[2022-04-25] MEDS: traZODone HCL 50 MG TABLET (FP) PO SCH (21:23)
[2022-04-26] MEDS: INSULIN SLIDING SCALE (NOVOLOG) 1 VIAL SQ SCH ×2 (06:35→16:38)
[2022-04-26] MEDS: BICTEGRAV/EMTRICIT/TENOFOV (BIKTARVY) 50-200-25 MG TABLET PO SCH (07:07)
[2022-04-26] MEDS: PRENATAL VITAMINS W/ FOLIC ACID TABLET (FP) PO SCH (10:33)
[2022-04-26] MEDS: risperiDONE 1 MG TABLET PO SCH ×2 (10:33→21:40)
[2022-04-26] MEDS: DOCUSATE SODIUM 100 MG CAPSULE (FP) PO SCH ×2 (10:33→21:40)
[2022-04-26] MEDS ORDERED: INSULIN (NOVOLOG) ASPART 100 UNITS/ML 10ML VIAL ONE (16:33)
[2022-04-26] MEDS: THIAMINE HCL 100 MG TABLET (FP) PO SCH (21:39)
[2022-04-26] MEDS: traZODone HCL 50 MG TABLET (FP) PO SCH (21:40)
[2022-04-26] MEDS: MELATONIN 5 MG TABLETS PO SCH (21:40)
[2022-04-26] MEDS: INSULIN (LEVEMIR) 100 UNITS/ML UNITS SQ SCH (21:43)
[2022-04-26] MEDS: hydrOXYzine PAMOATE 25 MG CAPSULE (FP) PO PRN (21:44)
[2022-04-27] MEDS ORDERED: INSULIN (NOVOLOG) ASPART 100 UNITS/ML 10ML VIAL ONE (06:54)
[2022-04-27] MEDS: INSULIN SLIDING SCALE (NOVOLOG) 1 VIAL SQ SCH ×2 (07:18→16:38)
[2022-04-27] MEDS: BICTEGRAV/EMTRICIT/TENOFOV (BIKTARVY) 50-200-25 MG TABLET PO SCH (07:20)
[2022-04-27] MEDS: PRENATAL VITAMINS W/ FOLIC ACID TABLET (FP) PO SCH (10:27)
[2022-04-27] MEDS: DOCUSATE SODIUM 100 MG CAPSULE (FP) PO SCH ×2 (10:28→21:12)
[2022-04-27] MEDS: risperiDONE 1 MG TABLET PO SCH ×2 (10:28→21:12)
[2022-04-27] MEDS: THIAMINE HCL 100 MG TABLET (FP) PO SCH (21:12)
[2022-04-27] MEDS: MELATONIN 5 MG TABLETS PO SCH (21:12)
[2022-04-27] MEDS: INSULIN (LEVEMIR) 100 UNITS/ML UNITS SQ SCH (21:13)
[2022-04-27] MEDS: traZODone HCL 50 MG TABLET (FP) PO SCH (21:51)
[2022-04-28] MEDS ORDERED: INSULIN (NOVOLOG) ASPART 100 UNITS/ML 10ML VIAL ONE ×2 (06:27→16:30)
[2022-04-28] MEDS: INSULIN SLIDING SCALE (NOVOLOG) 1 VIAL SQ SCH ×2 (07:08→16:38)
[2022-04-28] MEDS: BICTEGRAV/EMTRICIT/TENOFOV (BIKTARVY) 50-200-25 MG TABLET PO SCH (07:08)
[2022-04-28] MEDS: DOCUSATE SODIUM 100 MG CAPSULE (FP) PO SCH ×2 (10:01→21:35)
[2022-04-28] MEDS: risperiDONE 1 MG TABLET PO SCH ×2 (10:01→21:35)
[2022-04-28] MEDS: PRENATAL VITAMINS W/ FOLIC ACID TABLET (FP) PO SCH (10:01)
[2022-04-28] MEDS: THIAMINE HCL 100 MG TABLET (FP) PO SCH (21:35)
[2022-04-28] MEDS: MELATONIN 5 MG TABLETS PO SCH (21:35)
[2022-04-28] MEDS: traZODone HCL 50 MG TABLET (FP) PO SCH (21:35)
[2022-04-28] MEDS: INSULIN (LEVEMIR) 100 UNITS/ML UNITS SQ SCH (21:35)
[2022-04-29] MEDS ORDERED: INSULIN (NOVOLOG) ASPART 100 UNITS/ML 10ML VIAL ONE ×2 (06:59→16:17)
[2022-04-29] MEDS: BICTEGRAV/EMTRICIT/TENOFOV (BIKTARVY) 50-200-25 MG TABLET PO SCH (07:01)
[2022-04-29] MEDS: INSULIN SLIDING SCALE (NOVOLOG) 1 VIAL SQ SCH ×2 (07:17→16:35)
[2022-04-29] MEDS: DOCUSATE SODIUM 100 MG CAPSULE (FP) PO SCH ×2 (10:26→21:15)
[2022-04-29] MEDS: risperiDONE 1 MG TABLET PO SCH ×2 (10:26→21:15)
[2022-04-29] MEDS: PRENATAL VITAMINS W/ FOLIC ACID TABLET (FP) PO SCH (10:26)
[2022-04-29] MEDS: NICOTINE 10 MG CARTRIDGE (INHALER) IH PRN (16:35)
[2022-04-29] MEDS: MELATONIN 5 MG TABLETS PO SCH (21:14)
[2022-04-29] MEDS: hydrOXYzine PAMOATE 25 MG CAPSULE (FP) PO PRN (21:15)
[2022-04-29] MEDS: traZODone HCL 50 MG TABLET (FP) PO SCH (21:15)
[2022-04-29] MEDS: THIAMINE HCL 100 MG TABLET (FP) PO SCH (21:15)
[2022-04-29] MEDS: INSULIN (LEVEMIR) 100 UNITS/ML UNITS SQ SCH (21:17)
[2022-04-30] MEDS: INSULIN SLIDING SCALE (NOVOLOG) 1 VIAL SQ SCH ×2 (07:02→16:16)
[2022-04-30] MEDS: BICTEGRAV/EMTRICIT/TENOFOV (BIKTARVY) 50-200-25 MG TABLET PO SCH (07:02)
[2022-04-30] MEDS: DOCUSATE SODIUM 100 MG CAPSULE (FP) PO SCH ×2 (10:18→21:20)
[2022-04-30] MEDS: PRENATAL VITAMINS W/ FOLIC ACID TABLET (FP) PO SCH (10:18)
[2022-04-30] MEDS: risperiDONE 1 MG TABLET PO SCH ×2 (10:18→21:19)
[2022-04-30] MEDS ORDERED: INSULIN (NOVOLOG) ASPART 100 UNITS/ML 10ML VIAL ONE (16:14)
[2022-04-30] MEDS: hydrOXYzine PAMOATE 25 MG CAPSULE (FP) PO PRN (21:19)
[2022-04-30] MEDS: THIAMINE HCL 100 MG TABLET (FP) PO SCH (21:19)
[2022-04-30] MEDS: MELATONIN 5 MG TABLETS PO SCH (21:20)
[2022-04-30] MEDS: traZODone HCL 50 MG TABLET (FP) PO SCH (21:20)
[2022-04-30] MEDS: INSULIN (LEVEMIR) 100 UNITS/ML UNITS SQ SCH (21:22)
[2022-05-01] MEDS ORDERED: INSULIN (NOVOLOG) ASPART 100 UNITS/ML 10ML VIAL ONE ×2 (03:01→07:30)
[2022-05-01] MEDS: BICTEGRAV/EMTRICIT/TENOFOV (BIKTARVY) 50-200-25 MG TABLET PO SCH (07:02)
[2022-05-01] MEDS: INSULIN SLIDING SCALE (NOVOLOG) 1 VIAL SQ SCH ×2 (07:21→16:42)
[2022-05-01] MEDS: DOCUSATE SODIUM 100 MG CAPSULE (FP) PO SCH ×2 (09:53→21:09)
[2022-05-01] MEDS: risperiDONE 1 MG TABLET PO SCH ×2 (09:53→21:09)
[2022-05-01] MEDS: PRENATAL VITAMINS W/ FOLIC ACID TABLET (FP) PO SCH (09:53)
[2022-05-01] MEDS: hydrOXYzine PAMOATE 25 MG CAPSULE (FP) PO PRN (21:09)
[2022-05-01] MEDS: INSULIN (LEVEMIR) 100 UNITS/ML UNITS SQ SCH (21:09)
[2022-05-01] MEDS: MELATONIN 5 MG TABLETS PO SCH (21:09)
[2022-05-01] MEDS: traZODone HCL 50 MG TABLET (FP) PO SCH (21:09)
[2022-05-01] MEDS: THIAMINE HCL 100 MG TABLET (FP) PO SCH (21:09)
[2022-05-02] MEDS ORDERED: INSULIN (NOVOLOG) ASPART 100 UNITS/ML 10ML VIAL ONE (04:20)
[2022-05-02] MEDS: INSULIN SLIDING SCALE (NOVOLOG) 1 VIAL SQ SCH ×2 (06:56→16:41)
[2022-05-02] MEDS: BICTEGRAV/EMTRICIT/TENOFOV (BIKTARVY) 50-200-25 MG TABLET PO SCH (07:04)
[2022-05-02] MEDS: PRENATAL VITAMINS W/ FOLIC ACID TABLET (FP) PO SCH (09:51)
[2022-05-02] MEDS: DOCUSATE SODIUM 100 MG CAPSULE (FP) PO SCH ×2 (09:51→21:38)
[2022-05-02] MEDS: risperiDONE 1 MG TABLET PO SCH ×2 (09:51→21:38)
[2022-05-02] MEDS: traZODone HCL 50 MG TABLET (FP) PO SCH (21:38)
[2022-05-02] MEDS: MELATONIN 5 MG TABLETS PO SCH (21:38)
[2022-05-02] MEDS: THIAMINE HCL 100 MG TABLET (FP) PO SCH (21:38)
[2022-05-02] MEDS: INSULIN (LEVEMIR) 100 UNITS/ML UNITS SQ SCH (21:39)
[2022-05-03] MEDS: INSULIN SLIDING SCALE (NOVOLOG) 1 VIAL SQ SCH (07:04)
[2022-05-03] MEDS: BICTEGRAV/EMTRICIT/TENOFOV (BIKTARVY) 50-200-25 MG TABLET PO SCH (07:04)
[2022-05-03 07:18] VITALS: BP 120/71; PULSE 81; TEMP 97.5
[2022-05-03] MEDS: risperiDONE 1 MG TABLET PO SCH (09:31)
[2022-05-03] MEDS: PRENATAL VITAMINS W/ FOLIC ACID TABLET (FP) PO SCH (09:31)
[2022-05-03] MEDS: DOCUSATE SODIUM 100 MG CAPSULE (FP) PO SCH (09:31)
== END 2022-05-03 09:40 | disposition home or self-care (01) | DRG 772 ==
LOC: Y5N 21:44
PROVIDERS: ADMIT Allergy & Immunology; ATTEND Psychiatry & Neurology Pain Medicine
PROC: HZ42ZZZ Group Counseling for Substance Abuse Treatment, Cognitive-Behavioral (ICD-10-PCS; principal; 2022-04-12)
DX: F11.20 Opioid dependence, uncomplicated (principal); F14.20 Cocaine dependence, uncomplicated; F17.210 Nicotine dependence, cigarettes, uncomplicated; F19.282 Other psychoactive substance dependence with psychoactive substance-induced sleep disorder; F19.24 Other psychoactive substance dependence with psychoactive substance-induced mood disorder; F20.9 Schizophrenia, unspecified; Z21 Asymptomatic human immunodeficiency virus [HIV] infection status; B37.0 Candidal stomatitis; E11.65 Type 2 diabetes mellitus with hyperglycemia; Z79.84 Long term (current) use of oral hypoglycemic drugs; K59.00 Constipation, unspecified; R63.4 Abnormal weight loss; Z68.32 Body mass index [BMI] 32.0-32.9, adult; S69.91XD Unspecified injury of right wrist, hand and finger(s), subsequent encounter; W19.XXXD Unspecified fall, subsequent encounter; Z91.81 History of falling
CPT/HCPCS: 36415; 73130-TC-RT-FY; 80053; 81003; 81025; 82962; 85027; 86780; 86803; C9803-CS; J2794; U0003; U0005